=== PATIENT | male | born 1935 | race Caucasian/White ===

== ENCOUNTER 2020-02-10 13:30 | Outpatient (CLI) | payer OTHER, SELFPAY | END 2020-02-10 13:31 | disposition home or self-care (01) | PROVIDERS: PCP Internal Medicine; Visit Provider Specialist | DX: C44.229 Squamous cell carcinoma of skin of left ear and external auricular canal (principal) | CPT/HCPCS: 88305 ==

== ENCOUNTER 2021-12-06 12:07 | Outpatient (CLI) | payer OTHER, SELFPAY | END 2021-12-06 12:08 | disposition home or self-care (01) | PROVIDERS: PCP Internal Medicine; Visit Provider Specialist | DX: C44.712 Basal cell carcinoma of skin of right lower limb, including hip (principal) | CPT/HCPCS: 88305 ==

== ENCOUNTER 2023-01-23 13:18 | Outpatient (CLI) | payer OTHER, SELFPAY | END 2023-01-23 13:19 | disposition home or self-care (01) | LOC: CHSLAB 13:25 | PROVIDERS: PCP Internal Medicine; Visit Provider Specialist | DX: C44.329 Squamous cell carcinoma of skin of other parts of face (principal) | CPT/HCPCS: 88305 ==

== ENCOUNTER 2023-10-30 11:37 | Outpatient (CLI) | payer OTHER, SELFPAY | END 2023-10-30 11:38 | disposition home or self-care (01) | PROVIDERS: PCP Specialist; Visit Provider Specialist | DX: C44.319 Basal cell carcinoma of skin of other parts of face (principal) | CPT/HCPCS: 88305 ==

== ENCOUNTER 2025-05-20 07:01 | Outpatient (NON) | payer OTHER, SELFPAY ==
[2025-05-20 09:20] LABS: Hematocrit 30.3 % (37.0-46.0); Hemoglobin 9.6 g/dL (12.4-15.3); Mean Corpuscular HGB Conc 31.7 g/dL (32-36); Mean Corpuscular Hemoglobin 31.7 pg (27.0-31.0); Mean Corpuscular Volume 100.0 fL (78.0-102.0); Platelet Count Result 144 K/mm3 (150-420); Red Blood Count 3.03 M/mm3 (4.70-6.10); White Blood Count 6.2 K/mm3 (4.8-10.8)
[2025-05-20 09:24] LABS: Alanine Aminotransferase 24 U/L (6-50); Albumin Level 3.1 g/dL (3.5-5.1); Alkaline Phosphatase 137 U/L (38-126); Anion Gap 9 mmol/L (4-12); Aspartate Amino Transferase 26 U/L (17-59); Bilirubin,Total 1.4 mg/dL (0.2-1.3); Blood Urea Nitrogen 14 mg/dL (9-20); Calcium 8.7 mg/dL (8.4-10.2); Carbon Dioxide 27 mmol/L (22-30); Chloride 104 mmol/L (98-107); Cholesterol 96 mg/dL (0-200); Estimated Glomerular Filt Rate > 60; Glucose 97 mg/dL (65-110); HDL Direct 31 mg/dL; Osmolality Calculated 290 mOsm/kg (285-295); Potassium 4.2 mmol/L (3.4-5.0); Sodium 140 mmol/L (137-145); Total Protein 5.7 g/dL (6.3-8.2); Triglycerides 87 mg/dL (<150)
[2025-05-20 09:29] LABS: Hemoglobin A1C 5.0 % (<5.7)
[2025-05-20 09:50] LABS: Thyroid Stimulating Hormone 2.840 uIU/mL (0.465-4.680)
[2025-05-20 10:25] LABS: Vitamin B12 997.0 pg/mL (239-931)
== END 2025-05-20 07:02 | disposition home or self-care (01) ==
LOC: CHSLAB 07:04
DX: J44.9 Chronic obstructive pulmonary disease, unspecified (principal)
CPT/HCPCS: 36415; 80053; 80061; 82607; 82746; 83036; 84436; 84443; 85027